=== PATIENT | female | born 1975 | race Caucasian/White ===

== ENCOUNTER 2017-12-02 07:58 | Emergency (ER) | payer OTHER ==
[~2017-12-02] VITALS: Ht 149.9 cm; Wt 78.9 kg
[2017-12-02 10:15] VITALS: BP 142/81
== END 2017-12-02 10:15 | disposition home or self-care (01) ==
LOC: ED 07:58
DX: L50.0 Allergic urticaria (principal); R07.89 Other chest pain; E11.9 Type 2 diabetes mellitus without complications
CPT/HCPCS: J1200